=== PATIENT | male | born 1945 | race Caucasian/White ===

== ENCOUNTER 2016-05-16 01:54 | Observation (INO) | payer OTHER ==
[~2016-05-16] VITALS: Ht 170.2 cm; Wt 73.2 kg
[~2016-05-16 01:54] MED LIST: AMBIEN5 MG PO; Ambien PO; Aspirin E.C. PO; B COMPLETE1 EACH PO; CENTRUM MEN'S1 EACH PO; CLONAZEPAM0.5 MG PO; FLUOXETINE HCL40 MG PO; FLUOXETINE HCL60 MG PO; HYCODAN PO; LOPRESSOR50 MG PO; Lopressor PO; Maalox, Mylanta PO; PANTOPRAZOLE SO40 MG PO; PERCOCET 5/31 TABLET PO; POTASSIUM CHLO20 ME1 PO; PREDNISONE10 MG PO; PROAIR HFA8.5 GM IH; PROTONIX; PROZAC; PROZAC40 MG PO; PROzac PO; Protonix PO; Proventil,Ventolin H IH; RANITIDINE; SIMVASTATIN20 MG PO; SPIRIVA1 INHALATI IH; SYMBICORT; SYMBICORT60 INHALAT IH; Symbicort 160-4.5 mc IH; THEO-DUR,THEOC200 MG PO; THEOPHYLLINE; THEOPHYLLINE600 MG PO; TRAMADOL HCL50 MG PO; Theo-Dur,Theocron PO; Theragran PO; Thiamine,Vitamin B1 PO; Tylenol PM PO; ULTRAM; VANCOMYCIN1 GM/150 M IV; VITAMIN B-1100 MG PO; ZOLPIDEM TARTRA10 MG PO
[2016-05-16 02:56] LABS: EOSINOPHIL (%) 3.6 % (0-5); EOSINOPHIL COUNT 0.3 K/uL (0-0.3); HEMATOCRIT 41.9 % (38.0-50.0); IMMATURE GRANULOCYTE (%) 0.1 % (0.0-0.7); IMMATURE GRANULOCYTE COUNT 0.1 K/uL; LYMPHOCYTE COUNT 1.4 K/uL (1.0-2.8); MCH 33.7 PG (29.0-34.0); MCHC 32.5 G/DL (30.0-36.0); MEAN PLAT.VOLUME 10.4 uM^3 (9.0-12.4); MONOCYTE (%) 7.2 % (3-12); MONOCYTE COUNT 0.6 K/uL (0-0.8); NEUTROPHIL (%) 73.2 % (45-76); NEUTROPHIL COUNT 6.6 K/uL (1.8-6.4); PLATELET COUNT 171 K/uL (156-360); RBC DIS.WIDTH-CV 12.9 % (11.8-14.6); RBC DIS.WIDTH-SD 48.3 % (39-53); RED BLOOD COUNT 4.03 M/uL (4.00-5.50); WHITE BLOOD COUNT 8.9 K/uL (4.1-10.2)
[2016-05-16 03:07] LABS: CHLORIDE 101 mEq/L (99-109); POTASSIUM 4.2 mEq/L (3.7-5.4); SODIUM 145 mEq/L (136-147)
[2016-05-16 03:10] LABS: GLUCOSE 135 mg/dL (70-99)
[2016-05-16 03:11] LABS: ANION GAP 6 MEQ/L (2-14); TOTAL BILIRUBIN 0.4 mg/dL (0.0-1.0)
[2016-05-16 03:13] LABS: ALKALINE PHOSPHATASE 71 IU/L (3-129); GFR ESTIMATE (CALCULATED) > 59 mL/min/; SERUM ETHYL ALCOHOL 165 mg/dL
[2016-05-16 03:14] LABS: UREA NITROGEN (BUN) 15 mg/dL (9-23)
[2016-05-16 03:17] LABS: LIPASE 325 U/L (1.0-51.0)
[2016-05-16 03:18] LABS: TROP-I INTERPRETATION NEGATIVE; TROPONIN-I < 0.01 ng/mL (0.0-0.30)
[2016-05-16 04:10] LABS: BASE EXCESS 10.6 mEq/L (-3 to +3); BICARBONATE 39.2 mEq/L (22-26); CARBOXY HGB 1.1 % (0-5); COMMENTS - BLOOD GASES C+A+; DEVICE NC; METHEMOGLOBIN 0.9 % (0-1.5); O2 FLOW 4 L/MIN; PCO2 71 mm Hg (35-45); PO2 69 mm Hg (80-100); SITE RR; TOTAL RESP RATE 15 resp/min; pH 7.35 (7.35-7.45)
[2016-05-16 05:03] VITALS: BP 125/73
[2016-05-16 08:17] VITALS: BP 132/66
[2016-05-16 10:30] LABS: INFLUENZA A VIRAL ANTIGEN NEGATIVE; INFLUENZA B VIRAL ANTIGEN NEGATIVE
[2016-05-16 13:08] VITALS: BP 110/74; BP 158/73
== END 2016-05-16 16:10 | disposition home or self-care (01) ==
LOC: EME → EDBD 01:54 → EME 01:54 → EDOF 03:53 → 5WEST 04:50
PROVIDERS: Emergency Medicine; Internal Medicine; Physician Assistant Medical
DX: J44.1 Chronic obstructive pulmonary disease with (acute) exacerbation (principal); Z99.81 Dependence on supplemental oxygen; E87.4 Mixed disorder of acid-base balance; R09.02 Hypoxemia; F10.129 Alcohol abuse with intoxication, unspecified; Y90.6 Blood alcohol level of 120-199 mg/100 ml; R74.8 Abnormal levels of other serum enzymes; G89.29 Other chronic pain; I10 Essential (primary) hypertension; K21.9 Gastro-esophageal reflux disease without esophagitis; Z87.891 Personal history of nicotine dependence
CPT/HCPCS: 36600; 71010; 80053; 82803; 83690; 83880; 84484; 85025; 87502; 93005; 94640; 94640 76; 94760; 94799; 99202; 99281; 99284; G0378; G0480; J1100; J1650; J3411; J7030; J7644

== ENCOUNTER 2016-06-18 12:39 | Inpatient (IN) | payer OTHER ==
[~2016-06-18] VITALS: Ht 170.2 cm; Wt 71.8 kg
[2016-06-18 12:56] LABS: EOSINOPHIL COUNT 0.5 K/uL (0-0.3); HEMATOCRIT 43.1 % (38.0-50.0); IMMATURE GRANULOCYTE (%) 0.6 % (0.0-0.7); IMMATURE GRANULOCYTE COUNT 0.6 K/uL; LYMPHOCYTE COUNT 1.7 K/uL (1.0-2.8); MCH 32.7 PG (29.0-34.0); MCHC 33.4 G/DL (30.0-36.0); MCV 97.7 FL (86-99); MEAN PLAT.VOLUME 10.8 uM^3 (9.0-12.4); MONOCYTE (%) 7.5 % (3-12); MONOCYTE COUNT 0.8 K/uL (0-0.8); NEUTROPHIL (%) 70.7 % (45-76); NEUTROPHIL COUNT 7.3 K/uL (1.8-6.4); PLATELET COUNT 199 K/uL (156-360); RBC DIS.WIDTH-CV 11.9 % (11.8-14.6); RBC DIS.WIDTH-SD 41.7 % (39-53); RED BLOOD COUNT 4.41 M/uL (4.00-5.50); WHITE BLOOD COUNT 10.3 K/uL (4.1-10.2)
[2016-06-18 13:03] LABS: AMYLASE 79 IU/L (1-118); CHLORIDE 96 mEq/L (99-109); POTASSIUM 3.9 mEq/L (3.7-5.4)
[2016-06-18 13:04] LABS: SODIUM 137 mEq/L (136-147)
[2016-06-18 13:05] LABS: GLUCOSE 158 mg/dL (70-99)
[2016-06-18 13:07] LABS: ANION GAP 11 MEQ/L (2-14)
[2016-06-18 13:08] LABS: SERUM ETHYL ALCOHOL < 10 mg/dL
[2016-06-18 13:09] LABS: GFR ESTIMATE (CALCULATED) > 59 mL/min/
[2016-06-18 13:10] LABS: UREA NITROGEN (BUN) 14 mg/dL (9-23)
[2016-06-18 13:12] LABS: LIPASE 44 U/L (1.0-51.0)
[2016-06-18] MEDS ORDERED: AMBIEN10 MG PO (15:56)
[2016-06-18 17:44] VITALS: BP 157/78
[2016-06-18 23:43] VITALS: BP 125/61
[2016-06-19 06:10] LABS: HEMATOCRIT 41.5 % (38.0-50.0); MCH 33.7 PG (29.0-34.0); MCHC 33.3 G/DL (30.0-36.0); MCV 101.5 FL (86-99); MEAN PLAT.VOLUME 11.7 uM^3 (9.0-12.4); PLATELET COUNT 217 K/uL (156-360); RBC DIS.WIDTH-SD 44.6 % (39-53); RED BLOOD COUNT 4.09 M/uL (4.00-5.50); WHITE BLOOD COUNT 8.9 K/uL (4.1-10.2)
[2016-06-19 06:54] LABS: ALKALINE PHOSPHATASE 48 IU/L (3-129); ANION GAP 6 MEQ/L (2-14); CHLORIDE 94 MEQ/L (99-109); GFR ESTIMATE (CALCULATED) > 59 mL/min/; GLUCOSE 121 mg/dL (70-99); SAMPLE HEMOLYSIS CHECK 0; SAMPLE ICTERIC CHECK 0; SAMPLE LIPEMIA CHECK 0; SODIUM 136 MEQ/L (136-147); UREA NITROGEN (BUN) 12 mg/dL (9-23)
[2016-06-19 08:07] VITALS: BP 138/70
[2016-06-19 20:00] VITALS: BP 141/73
[2016-06-20 04:00] VITALS: BP 143/75
[2016-06-20 08:18] VITALS: BP 129/62
[2016-06-20 08:54] LABS: ANION GAP 6 MEQ/L (2-14); CHLORIDE 90 MEQ/L (99-109); EOSINOPHIL (%) 0.4 % (0-5); EOSINOPHIL COUNT 0.1 K/uL (0-0.3); GFR ESTIMATE (CALCULATED) > 59 mL/min/; GLUCOSE 135 mg/dL (70-99); HEMATOCRIT 38.3 % (38.0-50.0); IMMATURE GRANULOCYTE (%) 0.3 % (0.0-0.7); IMMATURE GRANULOCYTE COUNT 0.1 K/uL; LYMPHOCYTE COUNT 0.7 K/uL (1.0-2.8); MCH 33.3 PG (29.0-34.0); MCHC 32.9 G/DL (30.0-36.0); MCV 101.3 FL (86-99); MEAN PLAT.VOLUME 11.4 uM^3 (9.0-12.4); MONOCYTE (%) 8.5 % (3-12); MONOCYTE COUNT 1.3 K/uL (0-0.8); NEUTROPHIL COUNT 13.5 K/uL (1.8-6.4); PLATELET COUNT 179 K/uL (156-360); POTASSIUM 4.2 MEQ/L (3.7-5.4); RBC DIS.WIDTH-CV 12.1 % (11.8-14.6); RBC DIS.WIDTH-SD 44.6 % (39-53); RED BLOOD COUNT 3.78 M/uL (4.00-5.50); SAMPLE HEMOLYSIS CHECK 0; SAMPLE ICTERIC CHECK 0; SAMPLE LIPEMIA CHECK 0; SODIUM 134 MEQ/L (136-147); UREA NITROGEN (BUN) 7 mg/dL (9-23)
[2016-06-20 08:55] LABS: WHITE BLOOD COUNT 15.7 K/uL (4.1-10.2)
[2016-06-20 15:19] VITALS: BP 12/62
[2016-06-20 23:51] VITALS: BP 142/72
[2016-06-21 08:09] VITALS: BP 146/76
[2016-06-21 11:31] VITALS: BP 132/76
[2016-06-21 15:59] VITALS: BP 137/69
[2016-06-21 20:01] LABS: BASE EXCESS 14.7 mEq/L (-3 to +3); BICARBONATE 43.2 mEq/L (22-26); CARBOXY HGB 1.6 % (0-5); METHEMOGLOBIN 1.3 % (0-1.5); PCO2 73 mm Hg (35-45); PO2 39 mm Hg (80-100); SITE RR; pH 7.38 (7.35-7.45)
[2016-06-21 20:02] LABS: COMMENTS - BLOOD GASES A+C+
[2016-06-21 20:03] LABS: DEVICE HFNC; MECHANICAL RATE 20 resp/min; O2 FLOW 10 L/MIN
[2016-06-21 23:50] VITALS: BP 151/79
[2016-06-22 07:07] LABS: EOSINOPHIL (%) 0 % (0-5); HEMATOCRIT 37.6 % (38.0-50.0); IMMATURE GRANULOCYTE (%) 0.2 % (0.0-0.7); LYMPHOCYTE COUNT 0.3 K/uL (1.0-2.8); MCH 33.6 PG (29.0-34.0); MCHC 33.5 G/DL (30.0-36.0); MCV 100.3 FL (86-99); MEAN PLAT.VOLUME 11.3 uM^3 (9.0-12.4); MONOCYTE (%) 3.5 % (3-12); MONOCYTE COUNT 0.4 K/uL (0-0.8); NEUTROPHIL (%) 93.4 % (45-76); NEUTROPHIL COUNT 10.2 K/uL (1.8-6.4); PLATELET COUNT 228 K/uL (156-360); RBC DIS.WIDTH-CV 11.9 % (11.8-14.6); RBC DIS.WIDTH-SD 43.5 % (39-53); RED BLOOD COUNT 3.75 M/uL (4.00-5.50)
[2016-06-22 07:14] LABS: ANION GAP 7 MEQ/L (2-14); CHLORIDE 87 MEQ/L (99-109); GFR ESTIMATE (CALCULATED) > 59 mL/min/; GLUCOSE 193 mg/dL (70-99); POTASSIUM 4.9 MEQ/L (3.7-5.4); SAMPLE HEMOLYSIS CHECK 0; SAMPLE ICTERIC CHECK 0; SAMPLE LIPEMIA CHECK 0; SODIUM 134 MEQ/L (136-147); UREA NITROGEN (BUN) 13 mg/dL (9-23)
[2016-06-22 07:42] VITALS: BP 138/72
[2016-06-22 08:55] LABS: BASE EXCESS 12.3 mEq/L (-3 to +3); BICARBONATE 41.4 mEq/L (22-26); CARBOXY HGB 1.1 % (0-5); COMMENTS - BLOOD GASES A+C+; DEVICE HHFNC; FI02 60 %; O2 FLOW 40 L/MIN; PCO2 75 mm Hg (35-45); PO2 71 mm Hg (80-100); SITE RR; TOTAL RESP RATE 21 resp/min; pH 7.35 (7.35-7.45)
[2016-06-22 13:09] VITALS: BP 168/89
[2016-06-22 17:19] VITALS: BP 159/80
[2016-06-23 00:13] VITALS: BP 159/74
[2016-06-23 07:47] VITALS: BP 140/78
[2016-06-23 16:33] VITALS: BP 146/71
[2016-06-24 00:03] VITALS: BP 162/81
[2016-06-24 08:13] VITALS: BP 172/85
[2016-06-24 15:51] VITALS: BP 151/78
[2016-06-24 23:58] VITALS: BP 160/76
[2016-06-25 04:14] VITALS: BP 146/74
[2016-06-25 06:27] LABS: HEMATOCRIT 37.4 % (38.0-50.0); MCH 34.2 PG (29.0-34.0); MCHC 34.2 G/DL (30.0-36.0); MEAN PLAT.VOLUME 10.5 uM^3 (9.0-12.4); PLATELET COUNT 236 K/uL (156-360); RBC DIS.WIDTH-CV 12.2 % (11.8-14.6); RBC DIS.WIDTH-SD 44.4 % (39-53); RED BLOOD COUNT 3.74 M/uL (4.00-5.50); WHITE BLOOD COUNT 12.8 K/uL (4.1-10.2)
[2016-06-25 06:31] LABS: EOSINOPHIL (%) 0.3 % (0-5); IMMATURE GRANULOCYTE (%) 0.5 % (0.0-0.7); IMMATURE GRANULOCYTE COUNT 0.1 K/uL; LYMPHOCYTE COUNT 1.8 K/uL (1.0-2.8); MONOCYTE COUNT 1.2 K/uL (0-0.8); NEUTROPHIL (%) 75.8 % (45-76); NEUTROPHIL COUNT 9.7 K/uL (1.8-6.4)
[2016-06-25 06:43] LABS: POINT-OF-CARE METER ID UU14188577
[2016-06-25 06:49] LABS: ANION GAP 5 MEQ/L (2-14); CHLORIDE 90 MEQ/L (99-109); GFR ESTIMATE (CALCULATED) > 59 mL/min/; GLUCOSE 98 mg/dL (70-99); POTASSIUM 4.2 MEQ/L (3.7-5.4); SAMPLE HEMOLYSIS CHECK 0; SAMPLE ICTERIC CHECK 0; SAMPLE LIPEMIA CHECK 0; SODIUM 133 MEQ/L (136-147); UREA NITROGEN (BUN) 13 mg/dL (9-23)
[2016-06-25 08:30] VITALS: BP 139/71
[2016-06-25 11:35] VITALS: BP 163/85
[2016-06-25 12:06] LABS: POINT-OF-CARE METER ID UU14149397
[2016-06-25 16:35] VITALS: BP 124/70
[2016-06-25 17:03] LABS: POINT-OF-CARE METER ID UU14149397
[2016-06-25 23:53] VITALS: BP 158/71
[2016-06-26 04:34] VITALS: BP 150/78
[2016-06-26 07:17] VITALS: BP 139/71
[2016-06-26 15:50] VITALS: BP 137/75
[2016-06-26 21:33] LABS: POINT-OF-CARE METER ID UU14149397
[2016-06-26 23:46] VITALS: BP 180/85
[2016-06-27 04:05] VITALS: BP 140/80
[2016-06-27 07:57] LABS: POINT-OF-CARE METER ID UU14188577
[2016-06-27 08:30] VITALS: BP 145/67
[2016-06-27 16:30] VITALS: BP 137/69
[2016-06-28 00:19] VITALS: BP 142/70
[2016-06-28 08:47] VITALS: BP 138/76
[2016-06-28 11:29] LABS: POINT-OF-CARE METER ID UU14149397
[2016-06-28 11:36] VITALS: BP 128/61
[2016-06-28 16:30] VITALS: BP 127/56
[2016-06-28 17:01] LABS: POINT-OF-CARE METER ID UU14149397
[2016-06-28 22:12] LABS: POINT-OF-CARE METER ID UU14149397
[2016-06-28 23:49] VITALS: BP 129/74
[2016-06-29 07:12] LABS: POINT-OF-CARE METER ID UU14149397
[2016-06-29 08:14] VITALS: BP 141/65
[2016-06-29] MEDS ORDERED: OXAYDO5 MG PO (10:25)
[2016-06-29] MEDS ORDERED: PREDNISONE10 MG PO (10:29)
[2016-06-29 12:14] LABS: POINT-OF-CARE METER ID UU14188577
[2016-06-29 15:53] VITALS: BP 142/74
[2016-06-29 16:43] LABS: POINT-OF-CARE METER ID UU14188577
== END 2016-06-29 18:51 | disposition home health service (06) | DRG 200 ==
LOC: TRA 12:39 → 3EAST 15:19 → EDOF 15:19 → 3EAST 17:07
PROVIDERS: Emergency Medicine; Family Medicine Sports Medicine; Internal Medicine Pulmonary Disease; Surgery
PROC: 0W9930Z Drainage of Right Pleural Cavity with Drainage Device, Percutaneous Approach (ICD-10-PCS; principal; 2016-06-18)
DX: S27.0XXA Traumatic pneumothorax, initial encounter (principal); S22.41XA Multiple fractures of ribs, right side, initial encounter for closed fracture; J44.0 Chronic obstructive pulmonary disease with (acute) lower respiratory infection; F05 Delirium due to known physiological condition; J44.1 Chronic obstructive pulmonary disease with (acute) exacerbation; K70.30 Alcoholic cirrhosis of liver without ascites; W01.0XXA Fall on same level from slipping, tripping and stumbling without subsequent striking against object, initial encounter; F10.20 Alcohol dependence, uncomplicated; I10 Essential (primary) hypertension; R09.02 Hypoxemia; I48.0 Paroxysmal atrial fibrillation; K21.9 Gastro-esophageal reflux disease without esophagitis; Z86.73 Personal history of transient ischemic attack (TIA), and cerebral infarction without residual deficits; Z99.81 Dependence on supplemental oxygen; K59.00 Constipation, unspecified; F41.9 Anxiety disorder, unspecified; F32.9 Major depressive disorder, single episode, unspecified; Z87.891 Personal history of nicotine dependence; G89.29 Other chronic pain; Y92.019 Unspecified place in single-family (private) house as the place of occurrence of the external cause; J20.9 Acute bronchitis, unspecified
CPT/HCPCS: 36600; 71010; 71250; 74000; 74020; 74176; 80048; 80053; 80198; 81003; 82140; 82150; 82803; 82948; 83690; 85025; 85027; 86850; 86900; 86901; 94010; 94640; 94640 76; 94760; 94799; 97530 GO; 97530 GP; 99202; 99281; 99284; G0480; J0696; J1170; J1644; J1815; J2060; J2405; J2930; J3010; J7050; J7120; J7512

== ENCOUNTER 2016-07-23 21:06 | Emergency (ER) | payer OTHER ==
[~2016-07-23] VITALS: Ht 170.2 cm; Wt 63.2 kg
[~2016-07-23 21:06] MED LIST changes: +AMBIEN10 MG PO; +OXAYDO5 MG PO
[2016-07-23 22:21] LABS: CARBON DIOXIDE (BICARBONATE) 34.7 MEQ/L (20-31)
[2016-07-23 22:21] LABS: MCH 32.5 PG (29.0-34.0); MCHC 33.4 G/DL (30.0-36.0); MCV 97.2 FL (86-99); MEAN PLAT.VOLUME 9.6 uM^3 (9.0-12.4); PLATELET COUNT 252 K/uL (156-360); RBC DIS.WIDTH-CV 12.1 % (11.8-14.6); RBC DIS.WIDTH-SD 42.7 % (39-53)
[2016-07-23 22:30] LABS: CHLORIDE 98 mEq/L (99-109); POTASSIUM 3.4 mEq/L (3.7-5.4); SODIUM 137 mEq/L (136-147)
[2016-07-23 22:30] LABS: WHITE BLOOD COUNT 5.2 K/uL (4.1-10.2)
[2016-07-23 22:32] LABS: GLUCOSE 147 mg/dL (70-99)
[2016-07-23 22:33] LABS: ANION GAP 9 MEQ/L (2-14)
[2016-07-23 22:36] LABS: GFR ESTIMATE (CALCULATED) > 59 mL/min/
[2016-07-23 22:37] LABS: UREA NITROGEN (BUN) 11 mg/dL (9-23)
[2016-07-23 22:44] LABS: TROP-I INTERPRETATION NEGATIVE; TROPONIN-I < 0.01 ng/mL (0.0-0.30)
[2016-07-23] MEDS ORDERED: PREDNISONE20 MG PO (23:53)
[2016-07-23] MEDS ORDERED: LEVAQUIN750 MG PO (23:53)
[2016-07-24 01:11] VITALS: BP 118/57
== END 2016-07-24 01:13 | disposition home or self-care (01) ==
LOC: EME → EDBD 21:06 → EME 07-24 01:13
PROVIDERS: Emergency Medicine
DX: J20.9 Acute bronchitis, unspecified (principal); J44.1 Chronic obstructive pulmonary disease with (acute) exacerbation; R00.0 Tachycardia, unspecified; I10 Essential (primary) hypertension; Z87.891 Personal history of nicotine dependence
CPT/HCPCS: 71010; 80048; 82803; 83605; 83880; 84484; 85027; 87040; 93005; 99281; 99285; J1100; J7644

== ENCOUNTER 2017-04-14 11:03 | Inpatient (IN) | payer OTHER ==
[~2017-04-14] VITALS: Ht 170.2 cm; Wt 58.7 kg
[2017-04-14] VITALS (9 sets, daily range): BP systolic 127–157; BP diastolic 56–93
[~2017-04-14 11:03] MED LIST changes: +LEVAQUIN750 MG PO; +PREDNISONE20 MG PO; +THEOPHYLLINE400 MG PO; -THEOPHYLLINE600 MG PO
[2017-04-14 12:03] LABS: HEMATOCRIT 41.1 % (38.0-50.0); MCH 33.5 PG (29.0-34.0); MCHC 32.8 G/DL (30.0-36.0); MEAN PLAT.VOLUME 10.6 uM^3 (9.0-12.4); PLATELET COUNT 172 K/uL (156-360); RBC DIS.WIDTH-CV 12.1 % (11.8-14.6); RBC DIS.WIDTH-SD 45.8 % (39-53); RED BLOOD COUNT 4.03 M/uL (4.00-5.50); WHITE BLOOD COUNT 3.7 K/uL (4.1-10.2)
[2017-04-14 12:12] LABS: CHLORIDE 92 mEq/L (99-109); POTASSIUM 4.3 mEq/L (3.7-5.4); SODIUM 138 mEq/L (136-147)
[2017-04-14 12:14] LABS: GLUCOSE 157 mg/dL (70-99)
[2017-04-14 12:15] LABS: ANION GAP 15 MEQ/L (2-14)
[2017-04-14 12:16] LABS: TOTAL BILIRUBIN 0.9 mg/dL (0.0-1.0)
[2017-04-14 12:18] LABS: ALKALINE PHOSPHATASE 80 IU/L (3-129); GFR ESTIMATE (CALCULATED) > 59 mL/min/ (58.99-99999)
[2017-04-14 12:19] LABS: UREA NITROGEN (BUN) 16 mg/dL (9-23)
[2017-04-14 12:24] LABS: TROP-I INTERPRETATION NEGATIVE; TROPONIN-I 0.07 ng/mL (0.0-0.30)
[2017-04-14] MEDS ORDERED: ALBUTEROL2.5 MG/3 M IH (13:45)
[2017-04-14 13:59] LABS: BASE EXCESS 4.1 mEq/L (-3 to +3); CARBOXY HGB 1.8 % (0-5); METHEMOGLOBIN 0.6 % (0-1.5)
[2017-04-14 14:00] LABS: BICARBONATE 35.2 mEq/L (22-26); COMMENTS - BLOOD GASES A+C+; PCO2 90 mm Hg (35-45); PO2 133 mm Hg (80-100); SITE LR
[2017-04-14 14:01] LABS: DEVICE MED AERO; O2 FLOW 8 L/MIN; TOTAL RESP RATE 23 resp/min
[2017-04-14 14:24] LABS: ABS NEUTROPHIL COUNT 2.6; ANISOCYTOSIS 1+; BAND NEUTROPHILS 20.2 % (0-8.0); EOSINOPHIL ABS CT 0; INSTRUMENT ABS NEUTROPHIL CT 2.2 K/uL; LYMPHOCYTES 8.8 % (15.0-45.0); PLAT.SUFFICIENCY ADEQUATE; SMUDGE CELLS 1.8
[2017-04-14 14:27] LABS: SERUM ETHYL ALCOHOL < 10 mg/dL
[2017-04-14 17:39] LABS: BICARBONATE 38.1 mEq/L (22-26); CARBOXY HGB 1.6 % (0-5); METHEMOGLOBIN 1.4 % (0-1.5)
[2017-04-14 17:40] LABS: COMMENTS - BLOOD GASES A+C+; DEVICE 980; FI02 45 %; MODE SPONT; PCO2 83 mm Hg (35-45); PEEP 5 CM/H20; PO2 167 mm Hg (80-100); PRES. SUPPORT 10 CM/H2O; SITE LR; pH 7.27 (7.35-7.45)
[2017-04-14 19:15] LABS: METH RESISTANT S AUREUS PCR NEGATIVE (NEGATIVE)
[2017-04-14 19:37] LABS: PROBE CHECK PASS; SPECIMEN PROCESSING CONTROL PASS
[2017-04-15] VITALS (24 sets, daily range): BP systolic 121–169; BP diastolic 70–104
[2017-04-15 05:54] LABS: BASE EXCESS 13.8 mEq/L (-3 to +3); CARBOXY HGB 1.7 % (0-5); PCO2 84 mm Hg (35-45); pH 7.33 (7.35-7.45)
[2017-04-15 05:56] LABS: BICARBONATE 44.3 mEq/L (22-26); COMMENTS - BLOOD GASES C+; DEVICE MASK VENT; FI02 30 %; MODE NSPONT; PO2 63 mm Hg (80-100); SITE RR; TOTAL RESP RATE 26 resp/min
[2017-04-15 05:57] LABS: PEEP 5 CM/H20; PRES. SUPPORT 12 CM/H2O
[2017-04-15 19:09] LABS: BASE EXCESS 9.8 mEq/L (-3 to +3); BICARBONATE 42.8 mEq/L (22-26); CARBOXY HGB 1.7 % (0-5); METHEMOGLOBIN 1.2 % (0-1.5)
[2017-04-15 19:10] LABS: COMMENTS - BLOOD GASES A+C+; DEVICE 980; FI02 45 %; MODE SPONT; PCO2 112 mm Hg (35-45); PEEP 5 CM/H20; PO2 96 mm Hg (80-100); PRES. SUPPORT 14 CM/H2O; SITE LR; pH 7.19 (7.35-7.45)
[2017-04-15 20:14] LABS: BICARBONATE 41.8 mEq/L (22-26); CARBOXY HGB 1.6 % (0-5); COMMENTS - BLOOD GASES A+C+; METHEMOGLOBIN 1.3 % (0-1.5); PCO2 91 mm Hg (35-45); PO2 65 mm Hg (80-100); SITE RR; pH 7.27 (7.35-7.45)
[2017-04-15 20:15] LABS: DEVICE VENT; FI02 35 %; MODE SPONT; PEEP 5 CM/H20; PRES. SUPPORT 14 CM/H2O
[2017-04-15 22:53] LABS: BASE EXCESS 12.4 mEq/L (-3 to +3); BICARBONATE 42.2 mEq/L (22-26); CARBOXY HGB 1.6 % (0-5); COMMENTS - BLOOD GASES A+C+; DEVICE 980; FI02 30 %; METHEMOGLOBIN 1.3 % (0-1.5); MODE SPONT; PCO2 82 mm Hg (35-45); PEEP 5 CM/H20; PO2 53 mm Hg (80-100); PRES. SUPPORT 14 CM/H2O; SITE RR; pH 7.32 (7.35-7.45)
[2017-04-16] VITALS (23 sets, daily range): BP systolic 77–191; BP diastolic 46–123
[2017-04-16 05:21] LABS: HEMATOCRIT 40.7 % (38.0-50.0); MCHC 31.9 G/DL (30.0-36.0); MCV 103.3 FL (86-99); RBC DIS.WIDTH-CV 12.3 % (11.8-14.6); RBC DIS.WIDTH-SD 46.9 % (39-53); RED BLOOD COUNT 3.94 M/uL (4.00-5.50)
[2017-04-16 05:42] LABS: ANION GAP 8 MEQ/L (2-14); CHLORIDE 98 MEQ/L (99-109); GFR ESTIMATE (CALCULATED) > 59 mL/min/ (58.99-99999); GLUCOSE 136 mg/dL (70-99); POTASSIUM 4.5 MEQ/L (3.7-5.4); SAMPLE HEMOLYSIS CHECK 0; SAMPLE ICTERIC CHECK 0; SAMPLE LIPEMIA CHECK 0; SODIUM 141 MEQ/L (136-147)
[2017-04-16 05:46] LABS: UREA NITROGEN (BUN) 27 mg/dL (9-23)
[2017-04-16 06:46] LABS: EOSINOPHIL (%) 0.2 % (0-5); HEMATOLOGY COMMENT 1 SMEAR COMPATIBLE; IMMATURE GRANULOCYTE (%) 0.5 % (0.0-0.7); INSTRUMENT ABS NEUTROPHIL CT 4.1 K/uL; LYMPHOCYTE COUNT 0.8 K/uL (1.0-2.8); MEAN PLAT.VOLUME 10.3 uM^3 (9.0-12.4); MONOCYTE (%) 17.4 % (3-12); NEUTROPHIL (%) 69.1 % (45-76); NEUTROPHIL COUNT 4.1 K/uL (1.8-6.4); PLATELET COUNT 206 K/uL (156-360)
[2017-04-16 08:27] LABS: BASE EXCESS 16.2 mEq/L (-3 to +3); BICARBONATE 44.4 mEq/L (22-26); CARBOXY HGB 1.8 % (0-5); METHEMOGLOBIN 1.3 % (0-1.5); PO2 63 mm Hg (80-100); pH 7.41 (7.35-7.45)
[2017-04-16 08:28] LABS: COMMENTS - BLOOD GASES A+C+; DEVICE 980 PB MASK; FI02 30 %; MODE SPONT NIV; PCO2 70 mm Hg (35-45); SITE RR
[2017-04-16 08:29] LABS: PEEP 5 CM/H20; PRES. SUPPORT 14 CM/H2O; TOTAL RESP RATE 20 resp/min
[2017-04-16 10:20] LABS: C DIFF TOXIN NEGATIVE (NEGATIVE)
[2017-04-16 10:28] LABS: PROBE CHECK PASS; SPECIMEN PROCESSING CONTROL PASS
[2017-04-16 12:05] LABS: INTERNAL CONTROL VALID? YES
[2017-04-17] VITALS (22 sets, daily range): BP systolic 79–151; BP diastolic 52–85
[2017-04-17 06:51] LABS: HEMATOCRIT 39.6 % (38.0-50.0); MCH 33.1 PG (29.0-34.0); MCHC 32.1 G/DL (30.0-36.0); MCV 103.1 FL (86-99); PLATELET COUNT 228 K/uL (156-360); RBC DIS.WIDTH-CV 12.6 % (11.8-14.6); RBC DIS.WIDTH-SD 48.1 % (39-53); RED BLOOD COUNT 3.84 M/uL (4.00-5.50); WHITE BLOOD COUNT 5.3 K/uL (4.1-10.2)
[2017-04-17 06:58] LABS: ANION GAP 8 MEQ/L (2-14); CHLORIDE 101 MEQ/L (99-109); GFR ESTIMATE (CALCULATED) > 59 mL/min/ (58.99-99999); MAGNESIUM 2.3 mg/dl (1.3-2.7); SAMPLE HEMOLYSIS CHECK 0; SAMPLE ICTERIC CHECK 0; SAMPLE LIPEMIA CHECK 0; SODIUM 144 MEQ/L (136-147); UREA NITROGEN (BUN) 36 mg/dL (9-23)
[2017-04-17 07:00] LABS: GLUCOSE 205 mg/dL (70-99)
[2017-04-17 07:30] LABS: EOSINOPHIL (%) 0 % (0-5); HEMATOLOGY COMMENT 1 SMEAR COMPATIBLE; IMMATURE GRANULOCYTE (%) 0.9 % (0.0-0.7); IMMATURE GRANULOCYTE COUNT 0.1 K/uL; INSTRUMENT ABS NEUTROPHIL CT 4.3 K/uL; LYMPHOCYTE COUNT 0.5 K/uL (1.0-2.8); MONOCYTE (%) 8.6 % (3-12); MONOCYTE COUNT 0.5 K/uL (0-0.8); NEUTROPHIL (%) 81.1 % (45-76); NEUTROPHIL COUNT 4.3 K/uL (1.8-6.4)
[2017-04-18] VITALS (24 sets, daily range): BP systolic 94–150; BP diastolic 57–82
[2017-04-18 05:49] LABS: BASE EXCESS 14.8 mEq/L (-3 to +3); BICARBONATE 41.3 mEq/L (22-26); CARBOXY HGB 1.3 % (0-5); METHEMOGLOBIN 1.4 % (0-1.5); PCO2 58 mm Hg (35-45); PO2 67 mm Hg (80-100); SITE RR; pH 7.46 (7.35-7.45)
[2017-04-18 05:50] LABS: COMMENTS - BLOOD GASES A+C+; DEVICE 980VENT; FI02 40 %; MECHANICAL RATE 10 resp/min; MODE AC; PEEP 80 CM/H20; TIDAL VOLUME 500 ML; TOTAL RESP RATE 15 resp/min
[2017-04-18 05:53] LABS: HEMATOCRIT 36.4 % (38.0-50.0); MCH 32.5 PG (29.0-34.0); MCHC 31.6 G/DL (30.0-36.0); MCV 102.8 FL (86-99); MEAN PLAT.VOLUME 10.1 uM^3 (9.0-12.4); PLATELET COUNT 235 K/uL (156-360); RBC DIS.WIDTH-CV 12.8 % (11.8-14.6); RBC DIS.WIDTH-SD 48.8 % (39-53); RED BLOOD COUNT 3.54 M/uL (4.00-5.50); WHITE BLOOD COUNT 8.4 K/uL (4.1-10.2)
[2017-04-18 06:25] LABS: ANION GAP 10 MEQ/L (2-14); CHLORIDE 103 MEQ/L (99-109); GFR ESTIMATE (CALCULATED) > 59 mL/min/ (58.99-99999); GLUCOSE 203 mg/dL (70-99); MAGNESIUM 2.4 mg/dl (1.3-2.7); POTASSIUM 4.2 MEQ/L (3.7-5.4); SAMPLE HEMOLYSIS CHECK 0; SAMPLE ICTERIC CHECK 0; SAMPLE LIPEMIA CHECK 0; SODIUM 148 MEQ/L (136-147); UREA NITROGEN (BUN) 39 mg/dL (9-23)
[2017-04-18 07:18] LABS: EOSINOPHIL (%) 0 % (0-5); HEMATOLOGY COMMENT 1 SMEAR COMPATIBLE; IMMATURE GRANULOCYTE (%) 0.8 % (0.0-0.7); IMMATURE GRANULOCYTE COUNT 0.1 K/uL; INSTRUMENT ABS NEUTROPHIL CT 7.5 K/uL; LYMPHOCYTE COUNT 0.5 K/uL (1.0-2.8); MONOCYTE (%) 5.1 % (3-12); MONOCYTE COUNT 0.4 K/uL (0-0.8); NEUTROPHIL (%) 88.4 % (45-76); NEUTROPHIL COUNT 7.5 K/uL (1.8-6.4)
[2017-04-19] VITALS (23 sets, daily range): BP systolic 0–162; BP diastolic 0–92
[2017-04-19 07:43] LABS: HEMATOCRIT 35.9 % (38.0-50.0); MCH 34.2 PG (29.0-34.0); MCHC 32.6 G/DL (30.0-36.0); MEAN PLAT.VOLUME 9.9 uM^3 (9.0-12.4); PLATELET COUNT 203 K/uL (156-360); RBC DIS.WIDTH-CV 13.2 % (11.8-14.6); RBC DIS.WIDTH-SD 51.1 % (39-53); RED BLOOD COUNT 3.42 M/uL (4.00-5.50); WHITE BLOOD COUNT 8.5 K/uL (4.1-10.2)
[2017-04-19 08:07] LABS: ANION GAP ND MEQ/L (2-14); CHLORIDE 106 MEQ/L (99-109); GFR ESTIMATE (CALCULATED) > 59 mL/min/ (58.99-99999); GLUCOSE 205 mg/dL (70-99); MAGNESIUM 2.2 mg/dl (1.3-2.7); POTASSIUM 4.7 MEQ/L (3.7-5.4); SAMPLE HEMOLYSIS CHECK 0; SAMPLE ICTERIC CHECK 0; SAMPLE LIPEMIA CHECK 0; SODIUM 148 MEQ/L (136-147); UREA NITROGEN (BUN) 34 mg/dL (9-23)
[2017-04-19 08:10] LABS: CARBON DIOXIDE (BICARBONATE) > 40.0 MEQ/L (20-31)
[2017-04-20] VITALS (17 sets, daily range): BP systolic 133–174; BP diastolic 72–98
[2017-04-20 05:37] LABS: EOSINOPHIL (%) 0 % (0-5); HEMATOCRIT 43.4 % (38.0-50.0); IMMATURE GRANULOCYTE (%) 0.9 % (0.0-0.7); IMMATURE GRANULOCYTE COUNT 0.1 K/uL; INSTRUMENT ABS NEUTROPHIL CT 12.2 K/uL; LYMPHOCYTE COUNT 0.5 K/uL (1.0-2.8); MCH 32.6 PG (29.0-34.0); MCHC 30.9 G/DL (30.0-36.0); MCV 105.6 FL (86-99); MEAN PLAT.VOLUME 9.9 uM^3 (9.0-12.4); MONOCYTE (%) 4.7 % (3-12); MONOCYTE COUNT 0.6 K/uL (0-0.8); NEUTROPHIL (%) 90.8 % (45-76); NEUTROPHIL COUNT 12.2 K/uL (1.8-6.4); PLATELET COUNT 212 K/uL (156-360); RBC DIS.WIDTH-CV 12.8 % (11.8-14.6); RBC DIS.WIDTH-SD 50.3 % (39-53); RED BLOOD COUNT 4.11 M/uL (4.00-5.50); WHITE BLOOD COUNT 13.5 K/uL (4.1-10.2)
[2017-04-20 08:02] LABS: ANION GAP 6 MEQ/L (2-14); CHLORIDE 98 MEQ/L (99-109); GFR ESTIMATE (CALCULATED) > 59 mL/min/ (58.99-99999); GLUCOSE 123 mg/dL (70-99); POTASSIUM 4.9 MEQ/L (3.7-5.4); SAMPLE HEMOLYSIS CHECK 0; SAMPLE ICTERIC CHECK 0; SAMPLE LIPEMIA CHECK 0; SODIUM 143 MEQ/L (136-147); UREA NITROGEN (BUN) 26 mg/dL (9-23)
[2017-04-21] VITALS (18 sets, daily range): BP systolic 102–151; BP diastolic 62–88
[2017-04-21 06:23] LABS: EOSINOPHIL (%) 0 % (0-5); HEMATOCRIT 42.9 % (38.0-50.0); IMMATURE GRANULOCYTE (%) 0.8 % (0.0-0.7); IMMATURE GRANULOCYTE COUNT 0.1 K/uL; INSTRUMENT ABS NEUTROPHIL CT 9.7 K/uL; LYMPHOCYTE COUNT 0.6 K/uL (1.0-2.8); MCH 32.1 PG (29.0-34.0); MCHC 32.2 G/DL (30.0-36.0); MEAN PLAT.VOLUME 10.1 uM^3 (9.0-12.4); MONOCYTE (%) 6.2 % (3-12); MONOCYTE COUNT 0.7 K/uL (0-0.8); NEUTROPHIL (%) 87.7 % (45-76); NEUTROPHIL COUNT 9.7 K/uL (1.8-6.4); PLATELET COUNT 222 K/uL (156-360); RBC DIS.WIDTH-CV 12.3 % (11.8-14.6); RBC DIS.WIDTH-SD 45.7 % (39-53); WHITE BLOOD COUNT 11.1 K/uL (4.1-10.2)
[2017-04-21 06:31] LABS: ANION GAP 8 MEQ/L (2-14); CHLORIDE 96 MEQ/L (99-109); GFR ESTIMATE (CALCULATED) > 59 mL/min/ (58.99-99999); GLUCOSE 136 mg/dL (70-99); POTASSIUM 4.7 MEQ/L (3.7-5.4); SAMPLE HEMOLYSIS CHECK 0; SAMPLE ICTERIC CHECK 0; SAMPLE LIPEMIA CHECK 0; SODIUM 142 MEQ/L (136-147); UREA NITROGEN (BUN) 22 mg/dL (9-23)
[2017-04-21 06:32] LABS: MAGNESIUM 1.8 mg/dl (1.3-2.7)
[2017-04-21 06:54] LABS: MCV 99.8 FL (86-99)
[2017-04-22] VITALS (13 sets, daily range): BP systolic 106–146; BP diastolic 63–93
[2017-04-22 04:56] LABS: EOSINOPHIL (%) 0 % (0-5); IMMATURE GRANULOCYTE (%) 0.5 % (0.0-0.7); INSTRUMENT ABS NEUTROPHIL CT 7.7 K/uL; LYMPHOCYTE COUNT 0.4 K/uL (1.0-2.8); MCH 33.5 PG (29.0-34.0); MCHC 33.6 G/DL (30.0-36.0); MCV 99.8 FL (86-99); MEAN PLAT.VOLUME 10.1 uM^3 (9.0-12.4); MONOCYTE (%) 5.6 % (3-12); MONOCYTE COUNT 0.5 K/uL (0-0.8); NEUTROPHIL (%) 89.5 % (45-76); NEUTROPHIL COUNT 7.7 K/uL (1.8-6.4); PLATELET COUNT 191 K/uL (156-360); RBC DIS.WIDTH-CV 12.2 % (11.8-14.6); RBC DIS.WIDTH-SD 45.5 % (39-53); RED BLOOD COUNT 4.21 M/uL (4.00-5.50); WHITE BLOOD COUNT 8.6 K/uL (4.1-10.2)
[2017-04-22 05:47] LABS: ANION GAP 10 MEQ/L (2-14); CHLORIDE 97 MEQ/L (99-109); GFR ESTIMATE (CALCULATED) > 59 mL/min/ (58.99-99999); GLUCOSE 148 mg/dL (70-99); MAGNESIUM 1.9 mg/dl (1.3-2.7); POTASSIUM 4.6 MEQ/L (3.7-5.4); SAMPLE HEMOLYSIS CHECK 0; SAMPLE ICTERIC CHECK 0; SAMPLE LIPEMIA CHECK 0; SODIUM 143 MEQ/L (136-147); UREA NITROGEN (BUN) 28 mg/dL (9-23)
[2017-04-23] VITALS (8 sets, daily range): BP systolic 109–154; BP diastolic 52–92
[2017-04-23 06:22] LABS: EOSINOPHIL (%) 0.2 % (0-5); HEMATOCRIT 42.5 % (38.0-50.0); IMMATURE GRANULOCYTE (%) 0.6 % (0.0-0.7); IMMATURE GRANULOCYTE COUNT 0.1 K/uL; INSTRUMENT ABS NEUTROPHIL CT 9.7 K/uL; LYMPHOCYTE COUNT 1.2 K/uL (1.0-2.8); MCH 33.1 PG (29.0-34.0); MCHC 33.2 G/DL (30.0-36.0); MCV 99.8 FL (86-99); MEAN PLAT.VOLUME 10.1 uM^3 (9.0-12.4); MONOCYTE (%) 10.7 % (3-12); MONOCYTE COUNT 1.3 K/uL (0-0.8); NEUTROPHIL (%) 78.5 % (45-76); NEUTROPHIL COUNT 9.7 K/uL (1.8-6.4); PLATELET COUNT 212 K/uL (156-360); RBC DIS.WIDTH-CV 12.2 % (11.8-14.6); RBC DIS.WIDTH-SD 44.6 % (39-53); RED BLOOD COUNT 4.26 M/uL (4.00-5.50); WHITE BLOOD COUNT 12.4 K/uL (4.1-10.2)
[2017-04-23 06:59] LABS: ANION GAP 6 MEQ/L (2-14); CHLORIDE 98 MEQ/L (99-109); GFR ESTIMATE (CALCULATED) > 59 mL/min/ (58.99-99999); GLUCOSE 175 mg/dL (70-99); POTASSIUM 4.4 MEQ/L (3.7-5.4); SAMPLE HEMOLYSIS CHECK 0; SAMPLE ICTERIC CHECK 0; SAMPLE LIPEMIA CHECK 0; SODIUM 140 MEQ/L (136-147); UREA NITROGEN (BUN) 30 mg/dL (9-23)
[2017-04-24] VITALS (7 sets, daily range): BP systolic 117–131; BP diastolic 57–74
[2017-04-25 02:50] VITALS: BP 114/65
[2017-04-25 05:55] LABS: EOSINOPHIL COUNT 0.3 K/uL (0-0.3); HEMATOCRIT 39.9 % (38.0-50.0); IMMATURE GRANULOCYTE (%) 0.6 % (0.0-0.7); IMMATURE GRANULOCYTE COUNT 0.1 K/uL; INSTRUMENT ABS NEUTROPHIL CT 8.7 K/uL; LYMPHOCYTE COUNT 2.2 K/uL (1.0-2.8); MCH 32.6 PG (29.0-34.0); MCHC 32.3 G/DL (30.0-36.0); MCV 100.8 FL (86-99); MEAN PLAT.VOLUME 10.6 uM^3 (9.0-12.4); MONOCYTE (%) 10.3 % (3-12); MONOCYTE COUNT 1.3 K/uL (0-0.8); NEUTROPHIL (%) 69.2 % (45-76); NEUTROPHIL COUNT 8.7 K/uL (1.8-6.4); PLATELET COUNT 229 K/uL (156-360); RBC DIS.WIDTH-CV 12.2 % (11.8-14.6); RBC DIS.WIDTH-SD 45.8 % (39-53); RED BLOOD COUNT 3.96 M/uL (4.00-5.50); WHITE BLOOD COUNT 12.5 K/uL (4.1-10.2)
[2017-04-25 06:27] LABS: ANION GAP 4 MEQ/L (2-14); CHLORIDE 98 MEQ/L (99-109); GFR ESTIMATE (CALCULATED) > 59 mL/min/ (58.99-99999); GLUCOSE 88 mg/dL (70-99); POTASSIUM 3.6 MEQ/L (3.7-5.4); SAMPLE HEMOLYSIS CHECK 0; SAMPLE ICTERIC CHECK 0; SAMPLE LIPEMIA CHECK 0; SODIUM 140 MEQ/L (136-147); UREA NITROGEN (BUN) 20 mg/dL (9-23)
[2017-04-25 08:00] VITALS: BP 111/72
[2017-04-25 11:45] VITALS: BP 163/115
[2017-04-25 15:24] VITALS: BP 150/82
[2017-04-25 19:25] VITALS: BP 138/64
[2017-04-25] MEDS ORDERED: DUONEB 2.5-0.5 M3 ML AEROSOL (21:28)
[2017-04-25] MEDS ORDERED: SPIRIVA RESPIMAT4 GM IH (21:28)
[2017-04-25] MEDS ORDERED: PREDNISONE20 MG PO (21:33)
[2017-04-25] MEDS ORDERED: FOLIC ACID1 MG PO (21:33)
[2017-04-25] MEDS ORDERED: ANTABUSE250 MG PO (21:35)
[2017-04-25] MEDS ORDERED: Thiamine,Vitamin B1 PO (21:36)
[2017-04-25 23:55] VITALS: BP 152/66
[2017-04-26 04:58] VITALS: BP 100/59
[2017-04-26 08:22] VITALS: BP 133/70
[2017-04-26 11:15] VITALS: BP 142/71
== END 2017-04-26 13:48 | disposition home health service (06) | DRG 208 ==
LOC: EME 11:03 → 4WEST 16:01 → EDOF 16:01 → 4EAST 16:01 → CANRESERV 16:03 → ENRESERV 16:03 → 4WEST 17:13 → ENRESERV 04-20 09:45 → CANRESERV 04-20 10:07 → 4WEST 04-20 11:56 → ENRESERV 04-24 04:48 → 4EAST 04-24 08:13 → ENPENDDIS 04-26 → 4EAST 04-26 13:48
PROVIDERS: Emergency Medicine; Family Medicine Sports Medicine; Internal Medicine Critical Care Medicine; Specialist; Surgery
PROC: 0BH17EZ Insertion of Endotracheal Airway into Trachea, Via Natural or Artificial Opening (ICD-10-PCS; principal; 2017-04-16)
PROC: 5A1945Z Respiratory Ventilation, 24-96 Consecutive Hours (ICD-10-PCS; principal; 2017-04-16)
PROC: 02HV33Z Insertion of Infusion Device into Superior Vena Cava, Percutaneous Approach (ICD-10-PCS; 2017-04-16)
PROC: HZ2ZZZZ Detoxification Services for Substance Abuse Treatment (ICD-10-PCS; 2017-04-16)
PROC: 0B21XEZ Change Endotracheal Airway in Trachea, External Approach (ICD-10-PCS; 2017-04-17)
PROC: 0B21XEZ Change Endotracheal Airway in Trachea, External Approach (ICD-10-PCS; 2017-04-18)
DX: J96.21 Acute and chronic respiratory failure with hypoxia (principal); J96.22 Acute and chronic respiratory failure with hypercapnia; J44.0 Chronic obstructive pulmonary disease with (acute) lower respiratory infection; J18.9 Pneumonia, unspecified organism; J20.9 Acute bronchitis, unspecified; J21.9 Acute bronchiolitis, unspecified; J44.1 Chronic obstructive pulmonary disease with (acute) exacerbation; E87.4 Mixed disorder of acid-base balance; T85.618A Breakdown (mechanical) of other specified internal prosthetic devices, implants and grafts, initial encounter; Y84.8 Other medical procedures as the cause of abnormal reaction of the patient, or of later complication, without mention of misadventure at the time of the procedure; J69.0 Pneumonitis due to inhalation of food and vomit; J93.9 Pneumothorax, unspecified; F10.239 Alcohol dependence with withdrawal, unspecified; E87.6 Hypokalemia; K52.9 Noninfective gastroenteritis and colitis, unspecified; E63.9 Nutritional deficiency, unspecified; K21.9 Gastro-esophageal reflux disease without esophagitis; F17.200 Nicotine dependence, unspecified, uncomplicated; I11.0 Hypertensive heart disease with heart failure; I50.9 Heart failure, unspecified; I27.81 Cor pulmonale (chronic); I48.0 Paroxysmal atrial fibrillation; K70.9 Alcoholic liver disease, unspecified; K74.60 Unspecified cirrhosis of liver; F32.9 Major depressive disorder, single episode, unspecified; F41.9 Anxiety disorder, unspecified; K70.10 Alcoholic hepatitis without ascites; E78.5 Hyperlipidemia, unspecified; Z96.612 Presence of left artificial shoulder joint; Z86.73 Personal history of transient ischemic attack (TIA), and cerebral infarction without residual deficits; Z99.81 Dependence on supplemental oxygen
CPT/HCPCS: 36600; 71010; 71020; 74000; 74177; 80048; 80053; 82330; 82607; 82746; 82803; 83605; 83630; 83735; 83880; 84100; 84484; 85025; 85027; 87040; 87070; 87177; 87205; 87329; 87449; 87493; 87502; 87506; 87641; 92526 GN; 92610 GN; 93005; 93306; 94002; 94003; 94640; 94640 76; 94667; 94668; 94760; 94799; 97530 GO; 99202; 99281; 99285; C1751; G0480; J0295; J0456; J0696; J1200; J1650; J1720; J1956; J2060; J2250; J2704; J2920; J2930; J3010; J3475; J7030; J7040; J7050; J7512; S0030